=== PATIENT | female | born 1980 | race African-American/Black ===

== ENCOUNTER → 2017-04-14 | Outpatient (CLI) | payer BC ==
[2016-05-06 16:15] VITALS: BP 122/77
--- NOTE | 2017-04-19 12:16 | RAD ---
HISTORY: Bilateral hip pain for 2 months; no trauma. Study: Bilateral two-view hips Comparison: No priors Technique: AP pelvis and bilateral frogleg lateral views of the hips are provided. Findings: No evidence of fracture or dislocation is seen. Hip joints appear symmetric. No radiographic AVN is s een. IMPRESSION: Normal bilateral hips. Reported By:
== END ==
LOC: RAD 14:15
PROVIDERS: ATTEND Pain Medicine Pain Medicine
DX: M25.552 Pain in left hip (principal); M25.551 Pain in right hip
CPT/HCPCS: 73521

== ENCOUNTER → 2017-04-25 | Outpatient (CLI) | payer BC ==
[2016-05-06 16:15] VITALS: BP 122/77
--- NOTE | 2017-04-25 14:59 | MRI ---
HISTORY: Low back pain and radiculopathy. Noncontrast MRI examination of the lumbar spine. Technique: Multiplanar multi-sequence MRI of the lumbar spine was obtained. Sagittal T1, sagittal T2 , and stir weighted images, axial T1, and axial T2 images were obtained. Findings: The lumbar spine demonstrates normal alignment with the expected signal characteristics of the bone marrow. There is no evidence for an acute fracture or compression deformity. No aggressive bone marrow lesion is seen. There is no evidence for discitis. No intrathecal mass lesion or intrathe kanchan hemorrhage is seen. L5 is anatomically labeled based on the location of the ileo-lumbar ligaments for this lumbar spine MRI examination. The conus of the cord terminates normally. The visible retrop eritoneum is unremarkable. T12 -- L1: No appreciable disc pathology or neuroforaminal/spinal canal stenosis. L1 -- L2: No appreciable disc pathology or neuroforaminal/spinal canal stenosis. L2 -- L3: No appreciable disc pathology or neuroforaminal/spinal canal stenosis. L3 -- L4: No appreciable disc pathology or neuroforaminal/spinal canal stenosis. L4 -- L5: No appreciable disc pathology or neuroforaminal/spinal canal stenosis. L5 -- S1: Broad-based and concentric posterior disc protrusion (with a central T2 intense discal gely lar rent) which combines with facet joint DJD to create mild spinal canal narrowing, moderate bilater al lateral recess narrowing, and [id number] bilateral foraminal narrowing. IMPRESSION: L5 -- S1: Broad-based and concentric posterior disc protrusion (with a central T2 intense discal gely lar rent) which combines with mild facet joint DJD to create mild spinal canal narrowing, moderate bi lateral lateral recess narrowing, and [id number] bilateral foraminal narrowing. No other L-spin e abnormality is seen. Reported By:
== END | disposition home or self-care (01) ==
LOC: RAD 13:12
PROVIDERS: ATTEND Pain Medicine Pain Medicine
DX: M48.061 Spinal stenosis, lumbar region without neurogenic claudication (principal); M51.36 Other intervertebral disc degeneration, lumbar region; M51.37 Other intervertebral disc degeneration, lumbosacral region; M54.17 Radiculopathy, lumbosacral region; M47.897 Other spondylosis, lumbosacral region; M51.26 Other intervertebral disc displacement, lumbar region
CPT/HCPCS: 72148

== ENCOUNTER 2017-08-11 09:52 | Emergency (ER) | payer BC ==
[2017-08-11 09:55] VITALS: BMI 39.8
--- NOTE | 2017-08-11 10:03 | DR.GENAD ---
HPI - PCP Primary Care Physician: DRISS - Complaint/Symptoms Chief Complaint:: PT C/O CHEST PAIN THAT HAS BEEN COMING AND GOING FOR 3 WEEKS. PT STATES SHE THOUGHT IT WAS GAS PAIN, BUT IT IS GETTING WORSE. PT STATES THE PAIN IS FELLING LIKE SOMEONE IS STABING HER. - Nurses notes reviewed Nurses Notes Review: Yes - Source History Provided: Patient - Mode of Arrival Mode of Arrival: Ambulatory - Timing Onset of Chief Complaint: 08/09/17 Came on: Suddenly - Duration Duration: Constant Duration: Days - Severity Severity: Moderate PMH - PMH Past Medical History: Yes Past Medical History: Diabetes, Dyslipidemia, Hypertension Past Surgical History: Yes Surgical History: , [employer] Surgery, Hysterectomy, Other Past Surgical History Comment: BREAST REDUCTION - Family History History of Family Medical Conditions: Yes Family Medical History: Diabetes Mellitus - Social History Does patient currently use any type of tobacco product: Yes Have you used tobacco products in the last 12 months: Yes Type of Tobacco Use: Cigarettes Does any household member use tobacco: Yes Alcohol Use: Occasionally Do you use any recreational Drugs:: No Lives With: Family Lives Where: Home - infectious screening In the last 2 months have you had wt loss of >10#?: NO Have you had fever, night sweats or hemotysis?: No Have you traveled outside the country in the last 6 months?: No Isolation: Standard PE - Vital Signs Vitals: Temperature 97.5 F Pulse Rate [Apical] 92 Pulse Rate 83 Respiratory Rate 16 Blood Pressure [Left Arm] 114/63 Blood Pressure 119/66 O2 Sat by Pulse Oximetry 98 ROR - Labs Reviewed Result Diagrams: 08/11/17 10:24 08/11/17 10:24 Laboratory: WBC 8.1 X10^3/uL (3.6-10.0) 08/11/17 10:24 RBC 4.67 X10^6/uL (3.5-5.4) 08/11/17 10:24 Hgb 13.1 g/dL (12.0-16.0) 08/11/17 10:24 Hct 38.5 % (36.0-47.0) 08/11/17 10:24 MCV 82.3 fL (80.0-100.0) 08/11/17 10:24 MCH 28.0 pg (27.0-34.0) 08/11/17 10:24 MCHC 34.0 g/dL (33.0-35.0) 08/11/17 10:24 RDW 14.7 % (11.6-16.5) 08/11/17 10:24 Plt Count 337 X10^3/uL (150.0-450.0) 08/11/17 10:24 MPV 7.7 fL (7.4-11.0) 08/11/17 10:24 Neut % 62.7 % (42.0-75.0) 08/11/17 10:24 Lymph % 27.5 % (21.0-51.0) 08/11/17 10:24 [place] % 7.6 % (0.0-13.0) 08/11/17 10:24 Eos % 1.3 % (0.9-2.9) 08/11/17 10:24 Baso % 0.9 % (0.2-1.0) 08/11/17 10:24 Neut # 5.1 x10^3/uL (2.2-4.8) H 08/11/17 10:24 Lymph # 2.2 X10^3/uL (1.3-2.9) 08/11/17 10:24 [place] # 0.6 x10^3/uL (0.3-0.8) 08/11/17 10:24 Eos # 0.1 x10^3/uL (0.0-0.2) 08/11/17 10:24 Baso # 0.1 X10^3/uL (0.0-0.1) 08/11/17 10:24 Absolute Nucleated RBC 0.0 /100WBC 08/11/17 10:24 INR Target Range - 08/11/17 10:24 INR 1.00 (0.8-1.3) 08/11/17 10:24 PTT 29.5 SECONDS (22.9-36.5) 08/11/17 10:24 PTT Comment - 08/11/17 10:24 D-Dimer < 100 ng/mL (0-400) 08/11/17 10:24 Sodium 138 mmol/L (136-145) 08/11/17 10:24 Corrected Sodium 139 mmol/L (136-145) 08/11/17 10:24 Potassium 3.5 mmol/L (3.5-5.1) 08/11/17 10:24 Chloride 102 mmol/L (98-107) 08/11/17 10:24 Carbon Dioxide 28.5 mmol/L (21-32) 08/11/17 10:24 BUN 11 mg/dL (7-18) 08/11/17 10:24 Creatinine 0.74 mg/dL (0.55-1.02) 08/11/17 10:24 Est GFR (MDRD) Af Amer > 60 (>60) 08/11/17 10:24 Est GFR (MDRD) Non-Af > 60 (>60) 08/11/17 10:24 Glucose 126 mg/dL (65-99) H 08/11/17 10:24 Calcium 9.0 mg/dL (8.5-10.1) 08/11/17 10:24 Corrected Calcium TNP 08/11/17 10:24 Magnesium 1.4 mg/dL (1.7-2.9) L 08/11/17 10:24 Total Bilirubin 0.70 mg/dL (0.2-1.0) 08/11/17 10:24 AST 16 Units/L (15-37) 08/11/17 10:24 ALT 29 Units/L (12-78) 08/11/17 10:24 Alkaline Phosphatase 70 Units/L (46-116) 08/11/17 10:24 Creatine Kinase 243 Units/L (26-192) H 08/11/17 10:24 CK-MB (CK-2) < 1.0 ng/mL (0-4.0) 08/11/17 10:24 CK/CKMB % Calc 0.4 % (<4) 08/11/17 10:24 Troponin I < 0.02 ng/mL (0-1.5) 08/11/17 10:24 Total Protein 7.5 g/dL (6.4-8.2) 08/11/17 10:24 Albumin 3.7 g/dL (3.4-5.0) 08/11/17 10:24 Globulin 3.8 g/dL (2.5-4.5) 08/11/17 10:24 Albumin/Globulin Ratio 1.0 Ratio (1.1-2.1) L 08/11/17 10:24 - Discharge Plan Condition: Stable - Follow ups/Referrals Follow ups/Referrals: Pernell Dailey [Primary Care Provider] - 3 days - Instructions Instructions: Chest Pain Observation Additional Instructions: RETURN TO ED IF WORSE.
[2017-08-11] MEDS ORDERED: ASPIRIN EC 81 MG PO ONE (10:16)
[2017-08-11] MEDS ORDERED: ASPIRIN 81 MG CHEWTAB ONE (10:18)
[2017-08-11 10:35] LABS: BASOPHILS # (AUTO) 0.1 X10^3/uL (0.0-0.1); BASOPHILS % (AUTO) 0.9 % (0.2-1.0); EOSINOPHILS # (AUTO) 0.1 x10^3/uL (0.0-0.2); EOSINOPHILS % (AUTO) 1.3 % (0.9-2.9); HEMATOCRIT 38.5 % (36.0-47.0); HEMOGLOBIN 13.1 g/dL (12.0-16.0); LYMPHOCYTES # (AUTO) 2.2 X10^3/uL (1.3-2.9); LYMPHOCYTES % (AUTO) 27.5 % (21.0-51.0); MEAN CORPUSCULAR VOLUME 82.3 fL (80.0-100.0); MEAN PLATELET VOLUME 7.7 fL (7.4-11.0); MONOCYTES # (AUTO) 0.6 x10^3/uL (0.3-0.8); MONOCYTES % (AUTO) 7.6 % (0.0-13.0); NEUTROPHILS # (AUTO) 5.1 x10^3/uL (2.2-4.8); NEUTROPHILS % (AUTO) 62.7 % (42.0-75.0); PLATELET COUNT 337 X10^3/uL (150.0-450.0); RED BLOOD COUNT 4.67 X10^6/uL (3.5-5.4); RED CELL DISTRIBUTION WIDTH 14.7 % (11.6-16.5); WHITE BLOOD COUNT 8.1 X10^3/uL (3.6-10.0)
[2017-08-11 10:50] LABS: BLOOD UREA NITROGEN 11 mg/dL (7-18); CARBON DIOXIDE 28.5 mmol/L (21-32); CHLORIDE 102 mmol/L (98-107); COR NA(FOR HYPERGLY) 139 mmol/L (136-145); CREATININE 0.74 mg/dL (0.55-1.02); SODIUM 138 mmol/L (136-145); TROPONIN I < 0.02 ng/mL (0-1.5); eGFR BLACK RACES > 60 (>60); eGFR NON BLACK RACES > 60 (>60)
[2017-08-11 10:54] LABS: ALANINE AMINOTRANSFERASE 29 Units/L (12-78); ALBUMIN 3.7 g/dL (3.4-5.0); ALKALINE PHOSPHATASE 70 Units/L (46-116); ASPARTATE AMINO TRANSFERASE 16 Units/L (15-37); CKMB % 0.4 % (<4); CREATINE KINASE 243 Units/L (26-192); CREATINE KINASE MB < 1.0 ng/mL (0-4.0); MAGNESIUM 1.4 mg/dL (1.7-2.9); TOTAL PROTEIN 7.5 g/dL (6.4-8.2)
--- NOTE | 2017-08-11 11:06 | RAD ---
HISTORY: 36-year-old female with chest pain. Study: Frontal view of the chest. Comparison: Chest radiographs 07/24/2015 Findings: The trachea is midline. The cardiac silhouette is stable with low lung volumes and chronic elevation the right hemidiaphragm with chronic prominence of perihilar lung markings and interstitium. The elder ngs are clear without focal consolidation, effusion or pneumothorax. Soft tissues are unremarkable. Osseous structures are unremarkable. IMPRESSION: 1. No acute cardiopulmonary disease. Reported By:
[2017-08-11 11:20] VITALS: BP 114/63
== END 2017-08-11 11:32 | disposition home or self-care (01) ==
LOC: ER 10:10
DX: R07.89 Other chest pain (principal)
CPT/HCPCS: 36415; 71045; 80053; 82550; 82553; 83735; 84484; 85025; 85378; 85610; 85730; 93005; 93010; 96365; 99282; 99283; A4222